=== PATIENT | male | born 1940 | race Caucasian/White ===

== ENCOUNTER → 2016-10-31 | Outpatient (CLI) | payer OTHER, MEDICARE ==
[~2016-10-31] MED LIST: IOPAMIDOL (ISOVUE-300) 100 ML BTL IV ONE
[2016-10-31 15:30] LABS: CREATININE 1.3 mg/dL (0.7-1.3)
== END ==
LOC: FIMAGING 14:50
PROVIDERS: ATTEND Specialist
DX: Z12.89 Encounter for screening for malignant neoplasm of other sites (principal); N28.1 Cyst of kidney, acquired; M76.10 Psoas tendinitis, unspecified hip; K57.90 Diverticulosis of intestine, part unspecified, without perforation or abscess without bleeding; R91.1 Solitary pulmonary nodule; J98.4 Other disorders of lung; Z85.51 Personal history of malignant neoplasm of bladder
CPT/HCPCS: 71260; 74177; Q9967

== ENCOUNTER → 2017-11-21 | Outpatient (CLI) | payer OTHER, MEDICARE ==
[~2017-11-21] MED LIST changes: -IOPAMIDOL (ISOVUE-300) 100 ML BTL IV ONE; +IOPAMIDOL (ISOVUE-300) 100 ML BTL ONE
[2017-11-21 13:58] LABS: PLATELET COUNT 165 10^3/uL (150-400)
== END ==
LOC: FIMAGING 13:03
PROVIDERS: ATTEND Specialist
DX: Z85.51 Personal history of malignant neoplasm of bladder (principal); Z90.6 Acquired absence of other parts of urinary tract
CPT/HCPCS: 71260; 74177; Q9967

== ENCOUNTER 2017-12-20 10:42 | Emergency (ER) | payer OTHER, MEDICARE ==
[2017-12-20] MEDS ORDERED: NS 1,000 ML IV ONE (13:05)
[2017-12-20 13:15] LABS: PLATELET COUNT 160 10^3/uL (150-400)
[2017-12-20 13:19] LABS: INR 1.02 (0.83-1.16); PROTIME(PATIENT) 13.6 SEC (12.0-15.0)
--- NOTE | 2017-12-20 13:37 | EDPHY ---
H & P Stated Complaint: tremulous, no appetitie, weight loss x 2 weeks Time Seen by Provider: 12/20/17 12:54 HPI/ROS: CHIEF COMPLAINT: Weight loss HISTORY OF PRESENT ILLNESS: Patient is a 77-year-old man who comes to the emergency department complaining that he has lost 14 lb in the last 2 weeks. He also states that he is very shaky which happens to him when he is stressed out. He has also had a mild sore throat and headache. He states that he gets very shaky when he is stressed and he has been very stressed over the last 6 months caring for his 100 year old mom. They got her into a usp however last week. He also has a history of bladder cancer and has urostomy and had a follow-up abdominal CT 1 month ago which he reports was normal. He has not had any change in his urine output or coloration. He has not had a fever. Patient states that it is not make him nauseous or vomit when he eats he just simply does not have an appetite. He has not had any diarrhea other than slightly loose stool because he does enjoy drinking fruit juice. He has no abdominal tenderness or pain. No shortness of breath. No cough. No chest pain. He does have a mild headache. REVIEW OF SYSTEMS: Constitutional: See HPI denies: chills, fever, recent illness, recent injury EENTM: denies: blurred vision, double vision, nose congestion Respiratory: denies: cough, shortness of breath Cardiac: denies: chest pain, irregular heart rate, lightheadedness, palpitations Gastrointestinal/Abdominal: denies: abdominal pain, diarrhea, nausea, vomiting, blood streaked stools Genitourinary: denies: dysuria, frequency, hematuria, pain Musculoskeletal: denies: joint pain, muscle pain Skin: denies: lesions, rash, jaundice, bruising Neurological: Mild headache See HPI denies: numbness, paresthesia, tingling, dizziness, weakness Hematologic/Lymphatic: denies: blood clots, easy bleeding, easy bruising Immunologic/allergic: denies: HIV/AIDS, transplant EXAM: GENERAL: Well-appearing, well-nourished and in no acute distress. HEAD: Atraumatic, normocephalic. EYES: Pupils equal round and reactive to light, extraocular movements intact, sclera anicteric, conjunctiva are normal. ENT: TMs normal, nares patent, oropharynx clear without exudates. Moist mucous membranes. NECK: Normal range of motion, supple without lymphadenopathy or JVD. LUNGS: Breath sounds clear to auscultation bilaterally and equal. No wheezes rales or rhonchi. HEART: Regular rate and rhythm without murmurs, rubs or gallops. ABDOMEN: Soft, nontender, normoactive bowel sounds. No guarding, no rebound. No masses appreciated. Ostomy in place, clear urine, no erythema BACK: No CVA tenderness, no spinal tenderness, step-offs or deformities EXTREMITIES: Normal range of motion, no pitting or edema. No clubbing or cyanosis. NEUROLOGICAL: Mild tremulous, decrease with purposeful movement. Cranial nerves II through XII grossly intact. Normal speech, normal gait. 5/5 strength , normal movement in all extremities, normal sensation PSYCH: Normal mood, normal affect. SKIN: Warm, dry, normal turgor, no visible rashes or lesions. Source: Patient Exam Limitations: No limitations - Personal History Current Tetanus/Diphtheria Vaccine: No Current Tetanus Diphtheria and Acellular Pertussis (TDAP): No - Medical/Surgical History Hx Asthma: No Hx Chronic Respiratory Disease: No Hx Diabetes: No Hx Cardiac Disease: No Hx Renal Disease: No Hx Cirrhosis: No Hx Alcoholism: No Hx HIV/AIDS: No Hx Splenectomy or Spleen Trauma: No Other PMH: bladder ca--nephrostomy - Social History Smoking Status: Never smoked Alcohol Use: Sober Drug Use: None Constitutional: Initial Vital Signs Temperature (C) 36.0 C 12/20/17 10:50 Heart Rate 108 H 12/20/17 10:50 Respiratory Rate 18 12/20/17 10:50 Blood Pressure 125/76 H 12/20/17 10:50 O2 Sat (%) 97 12/20/17 10:50 O2 Delivery Mode Room Air Medical Decision Making - Diagnostics Imaging: Discussed imaging studies w/ community theater actor Radiologist ED Course/Re-evaluation: We discussed the patient's test results thus far. The patient's urinalysis is dirty although he is asymptomatic and does not think this is the problem. We will send for cultures and not treat at this time. We discussed his CT abnormality that may be artifact but considering his history of bladder cancer will perform an MRI because he also has a mild headache. He does have some shaking still but states that he has been told past he may have Parkinson's. He feels that he gets significantly worse when he is stressed. I offered admission however he declines and thinks that he would prefer to go home on last week find something abnormal in the MRI because he has had a lot of stress recently now that that stress somewhat relieved thinks that he will be of to take better care of himself. 3:40 p.m. we discussed the MRI results. The patient is reassured and is very eager to go home. He declines further workup or testing will follow up with his primary. We discussed indications for returning. Differential Diagnosis: Partial list of the Differential diagnosis considered include but were not limited to; anxiety, gastritis, cancer, dehydration and although unlikely based on the history and physical exam, I also considered anxiety, sepsis. I discussed these differential diagnoses and the plan with the patient as well as the usual and expected course. The patient understands that the diagnosis is provisional and that in medicine we are not always correct and that further workup is often warranted. Usual and customary warnings were given. All of the patient's questions were answered. The patient was instructed to return to the emergency department should the symptoms at all worsen or return, otherwise to followup with the physician as we discussed. - Data Points Laboratory Results: Laboratory Results 12/20/17 11:55 12/20/17 11:55 Medications Given: Discontinued Medications Sodium Chloride (Ns) 1,000 mls @ 0 mls/hr IV ONCE ONE; Wide Open PRN Reason: Protocol Stop: 12/20/17 13:06 Last Admin: 12/20/17 13:30 Dose: 1,000 mls Departure - Departure Disposition: Home, Routine, Self-Care Clinical Impression: Weight loss, Essential tremor Condition: Fair Instructions: Malnutrition (DC), Tremors (ED) Referrals: NONE *PRIMARY CARE P,. [Primary Care Provider] - As per Instructions Jay Luis MD [Medical Doctor] - As per Instructions Iris Mcelroy MD [[facility] [place] Primary Care Provider] - 2-3 days, call for appt.
[2017-12-20] MEDS ORDERED: GADOBUTROL 10 ML VIAL IVP ONE (14:54)
[2017-12-20 15:59] VITALS: BP 118/77
== END 2017-12-20 15:58 | disposition home or self-care (01) ==
DX: R63.4 Abnormal weight loss (principal); G25.0 Essential tremor; E86.9 Volume depletion, unspecified
CPT/HCPCS: 70450; 70553; 96360; 99285; A9585